=== PATIENT | male | born 1990 | race Caucasian/White ===

== ENCOUNTER 2017-07-14 10:15 | Inpatient (IN) | payer BC ==
[2017-07-14 11:20] LABS: #Eosinphils 0.1 thou/uL (0.0-0.7); #Lymphocytes 1.2 thou/uL (1.20-3.40); #Monocytes 0.3 thou/uL (0.11-0.59); #Neutrophils 2.8 thou/uL (1.40-6.50); %Basophils 0.5 % (0.0-1.0); %Eosinophils 1.9 % (0.0-10.0); %Lymphocytes 27.3 % (21.0-51.0); %Monocytes 7.1 % (0.0-10.0); %Neutrophils 63.2 % (42.0-75.0); Hemoglobin 15.1 g/dL (14.0-18.0); Mean Corpuscular HGB CONC 34.1 g/dL (32.0-36.0); Mean Platelet Volume 7.8 fL (7.4-10.4); Platelet Count 213 thou/uL (130-400); RBC Distribution Width 11.9 % (11.5-14.5); Red Blood Cell (RBC) Count 4.87 mill/uL (4.70-6.10); White Blood Cell (WBC) Count 4.5 thou/uL (4.8-10.8)
[2017-07-14 11:42] LABS: ALT (SGPT) 11 U/L (8-55); AST (SGOT) 16 U/L (5-34); Albumin 5.1 g/dL (3.5-5.0); Alkaline Phosphatase 71 U/L (40-150); Anion Gap 15 mmol/L (10-20); BUN (Urea Nitrogen) 10 mg/dL (8.9-20.6); Bilirubin, Total 0.6 mg/dL (0.2-1.2); Calc. Creatinine Clearance 0 mL/min (70-130); Calcium 9.7 mg/dL (7.8-10.44); Carbon Dioxide 22 mmol/L (22-29); Chloride 107 mmol/L (98-107); Estimated GFR-MDRD Greater than 90; Globulin 2.7 g/dL (2.4-3.5); Glucose 109 mg/dL (70-105); Potassium 3.7 mmol/L (3.5-5.1); Protein, Total 7.8 g/dL (6.0-8.3); Sodium 140 mmol/L (136-145)
[2017-07-14 11:46] LABS: CKMB 0.8 ng/mL (0-6.6); Troponin I Less than 0.010 ng/mL (< 0.028)
--- NOTE | 2017-07-14 14:09 | RAD ---
CHEST PA AND LATERAL: HISTORY: A 26-year-old male with a history of chest tightness this morning. History of anxiety. COMPARISON: 12/29/16. FINDINGS: There is a very large right-sided pneumothorax with some degree of tension and minimal shift of heart and mediastinum to the left and some depression of the right hemidiaphragm. The left lung appears c lear. IMPRESSION: Very large tension right-sided pneumothorax. Findings were discussed with Dr. Zuñiga in the ER at 1 1:06 a.m. CODE LOIDA POS: KILO
[2017-07-14] MEDS ORDERED: Ondansetron ODT 4 MG TAB PO PRN (14:29)
[2017-07-14] MEDS ORDERED: Acetaminophen 325 MG TAB PO PRN (14:29)
[2017-07-14] MEDS ORDERED: Guaifenesin DM 100-10/5 ML UDCUP PO PRN (14:29)
[2017-07-14] MEDS ORDERED: HYDROcodone/Acetaminophen 5/325 mg Tablet PO PRN (14:29)
[2017-07-14] MEDS ORDERED: HYDROcodone/Acetaminophen 5/325 mg Tablet ONE (14:34)
--- NOTE | 2017-07-14 15:47 | CT ---
CHEST CT WITHOUT IV CONTRAST: History: 26-year-old male with history of spontaneous pneumothorax with chest pain. Evaluate for right lung blebs. FINDINGS: The previously noted large right sided pneumothorax has markedly decreased in size with some residual . The apical region of the right lung does not show any significant blebs or bullae. In the posterior aspect of the mid right lower lobe there is some minimal pleural based parenchymal changes in what a ppears to be several small bullae with some associated atelectasis. In the right lung base there is s ome persistent pneumothorax and some minimal atelectasis. In addition there appear to be several pote ntial bullae or blebs measuring approximately 1.2 x 3.8 cm. It is conceivable that these air densitie s could represent some loculated residual pneumothorax. There is some very mild pleural thickening of the visual pleura in the apex of the right lung. There appear to be a few small blebs in the apex of the left lung. No mediastinal mass or adenopathy. No significant pleural effusion or pericardial eff usion. IMPRESSION: Some residual right sided pneumothorax. Some visceral pleural thickening in the right apex. Residual pneumothorax with some residual atelectasis in the right lateral midlung zone and the posterior right mid and lower lung zone. Probable small bullae in the posterior midlung zone and an approximately 1. 2 x 3.8 region of what appears to be some loculated bullae or blebs in the right lung base. There is some associated atelectasis and some residual pneumothorax. It is conceivable that some of this air d ensity is related to some loculated pneumothorax. Follow up CT scan after the right lung has been ful ly inflated might further characterize this. POS: KILO
--- NOTE | 2017-07-14 15:48 | OP ---
PREOPERATIVE DIAGNOSIS: Recurrent right pneumothorax. POSTOPERATIVE DIAGNOSIS: Recurrent right pneumothorax. PROCEDURE: Right PneumoDart placement. SURGEON PERFORMED: Anatoliy Porter M.D. ANESTHESIA: 1% lidocaine for local. PROCEDURE IN DETAIL: After consent was obtained, right chest wall was prepped and draped in usual st erile fashion. Skin and subcutaneous tissues were anesthetized with 1% lidocaine. Percutaneous acce ss to the chest was obtained and the catheter slid nicely into the chest. There was good air boudreaux af terwards. The patient was able to cough and expel air. The catheter was secured to the chest wall w ith silk suture. Catheter was placed to a Heimlich valve. The patient tolerated procedure well and sterile dressings were applied.
--- NOTE | 2017-07-14 15:53 | CON ---
DATE OF CONSULTATION: 07/14/2017 HISTORY OF PRESENT ILLNESS: Mr. Johnson is a 26-year-old gentleman, who was in the hospital in late with a right pneumothorax. This was his first episode. He was treated with a chest tube with res olution of his pneumothorax. He has done well until yesterday when he began to experience shoulder p ain and then shortness of breath today. This led to him coming to the emergency department. Chest x -ray shows large right pneumothorax. This is his second episode. PAST MEDICAL HISTORY: None. PAST SURGICAL HISTORY: Appendectomy. CURRENT MEDICATIONS AT HOME: None. ALLERGIES: None. SOCIAL HISTORY: He smokes about a half-pack of cigarettes a day. He lives with his grandmother and is unemployed. PHYSICAL EXAMINATION: GENERAL: This is a very thin, young man, resting comfortably in emergency department. VITAL SIGNS: His heart rate is 80 and regular and blood pressure is 132/76. LUNGS: Have depressed lung sounds on the right. CHEST: He has a previous scar on his chest wall. HEART: Rhythm is regular. ABDOMEN: Soft and nontender. EXTREMITIES: No edema. RADIOLOGY: Chest x-ray has been reviewed. ASSESSMENT AND PLAN: This is a 26-year-old with a recurrent right pneumothorax. Plan is for a small bore chest tube placement and thoracoscopy for bleb resection tomorrow. I will get a CT scan of his chest in the interim.
[2017-07-14 15:56] VITALS: BMI 16.5
[2017-07-14] MEDS: HYDROcodone/Acetaminophen 5/325 mg Tablet PO PRN ×2 (18:30→22:33)
[2017-07-15] MEDS ORDERED: CEFAZOLIN/Water 2 GM/20 ML SYRINGE SLOW IVP SCH (12:00)
[2017-07-15] MEDS ORDERED: CEFAZOLIN/Water 2 GM/20 ML SYRINGE ONE ×2 (13:06→16:16)
[2017-07-15] MEDS ORDERED: Midazolam HCl 2 mg/2 ml Vial ONE ×2 (14:13→17:04)
[2017-07-15] MEDS ORDERED: Lidocaine 1% PF 5 ML VIAL ONE (15:22)
[2017-07-15] MEDS ORDERED: Propofol 200 MG/20 ML VIAL ONE (15:22)
[2017-07-15] MEDS ORDERED: Ondansetron HCl/PF 4 MG/2 ML Vial ONE (15:22)
[2017-07-15] MEDS ORDERED: diphenhydrAMINE 50 MG/ML VIAL ONE (15:22)
[2017-07-15] MEDS ORDERED: Glycopyrrolate 0.2 MG/ML 5 ML SYRINGE ONE (15:22)
[2017-07-15] MEDS ORDERED: Fentanyl 250 MCG/5 ML VIAL ONE ×2 (17:04→20:10)
[2017-07-15] MEDS ORDERED: Bupivacaine HCl 0.5%/Epinephrine 1:200,000/PF 30 ml Vial ONE (18:22)
[2017-07-15] MEDS ORDERED: Meperidine HCl/PF 25 MG/ML VIAL ONE (19:39)
[2017-07-15] MEDS ORDERED: Ondansetron HCl/PF 4 MG/2 ML Vial IVP PRN (19:43)
[2017-07-15] MEDS ORDERED: Promethazine HCl 25 MG/ML VIAL IM PRN (19:43)
[2017-07-15] MEDS ORDERED: Meperidine HCl/PF 25 MG/ML VIAL SLOW IVP PRN (19:43)
[2017-07-15] MEDS ORDERED: Promethazine HCl 25 MG/ML VIAL SLOW IVP PRN (19:43)
--- NOTE | 2017-07-15 20:28 | OP ---
DATE OF PROCEDURE: 07/15/2017 PREOPERATIVE DIAGNOSIS: Recurrent right spontaneous pneumothorax. POSTOPERATIVE DIAGNOSIS: Recurrent right spontaneous pneumothorax. PROCEDURE: Right thoracoscopy with resection of blebs in the right upper lobe and right lower lobe with a wedge resection. Mechanical pleurodesis SURGEON: Anatoliy Porter M.D. ANESTHESIA: General endotracheal. ESTIMATED BLOOD LOSS: Less than 50 mL DRAINS: 28-Gambian chest tubes. SPECIMENS: 1. Right upper lobe wedge. 2. Right middle lobe wedge. PROCEDURE IN DETAIL: After consent was obtained, the patient was brought to operating room and placed supine on operating room table. Appropriate anesthetic monitor was placed and general endotracheal anesthesia induced. Flexible fiberoptic bronchoscopy was performed to position the endotracheal tube. The patient was placed in left lateral decubitus position. Joints were appropriately padded. SCDs were used. Right chest wall was prepped and draped in usual sterile fashion. The previous chest tube was removed. Two separate working incisions were made and 1 anterior in the mid axillary line and one posteriorly. There was a third incision made for instrumentation. Bronchoscope was inserted and the chest explored. There was an area in the right middle lobe that had obvious blebs that was resected. There was area in the apex that had obvious blebs that was resected. Both resections were performed using a WHIT stapler with multiple fires. The lung was inflated and there were no other areas of blebs that were noted. A 28-Gambian chest tube was positioned through the anterior port site and the lung reexpanded. Lung expanded nicely. The lung was redeflated and the chest wall abraded with Bovie scratch pad. 0.5% Marcaine was used to perform a rib block. The lung was reexpanded. The 2 remaining incisions were closed in multiple layers and Dermabond applied to the skin. The patient tolerated procedure well, was awakened, extubated, and transferred to recovery room in stable condition. FELICIA
[2017-07-15] MEDS ORDERED: Fentanyl 100 MCG/2 ML VIAL SLOW IVP PRN (20:44)
--- NOTE | 2017-07-15 21:44 | RAD ---
RADIOGRAPH CHEST 1 VIEW: Date: 07-15-17 Time: 8:06 p.m. HISTORY: 26-year-old male follow up pneumothorax, status post right thoracoscopy. COMPARISON: 07-14-17 FINDINGS: The previously demonstrated large right pneumothorax has resolved, and there is a new right sided ofelia st tube ascending the lateral aspect of the right thoracic cage, with distal tip at the apex. There i s another new finding of a focal 2 x 2.5 cm nodular opacity overlying the right upper lobe. The rest of the visualized lung garcia are clear. Left lateral costophrenic angle is sharp. Cardiomediastinal shadow is narrowed. IMPRESSION: 1. New right sided thoracotomy tube. 2. No pneumothorax visible. 3. Nodular density near right apex may represent recent post-surgical changes, including suture line. AYAN POS: KILO
[2017-07-15] MEDS: HYDROcodone/Acetaminophen 5/325 mg Tablet PO PRN (22:10)
[2017-07-16] MEDS: Ketorolac Tromethamine 30 MG/ML VIAL IVP SCH ×4 (00:52→17:18)
[2017-07-16] MEDS: HYDROcodone/Acetaminophen 5/325 mg Tablet PO PRN ×2 (02:37→20:30)
--- NOTE | 2017-07-16 09:06 | RAD ---
PORTABLE CHEST 1 VIEW: Date: 07/16/17 Time: 0719 hours HISTORY: Status post right thoracoscopy. FINDINGS/IMPRESSION: A tiny right apical pneumothorax may be present. Remainder of exam is otherwise study since the previ ous day's study. POS: OFF
[2017-07-17] MEDS: Ketorolac Tromethamine 30 MG/ML VIAL IVP SCH ×2 (00:10→05:54)
[2017-07-17 08:01] VITALS: BP 100/63; TEMP 97.8
--- NOTE | 2017-07-17 11:25 | DIS ---
DATE OF ADMISSION: 07/14/2017 DATE OF DISCHARGE: 07/17/2017 DIAGNOSIS: Recurrent right pneumothorax. PROCEDURES: 1. Right chest tube placement. 2. Right thoracoscopy with resection of apical and right middle lobe blebs. DESCRIPTION OF HOSPITAL STAY: Mr. Johnson presented to the emergency department with a recurrent right pneumothorax. He continues to smoke. He has had smoking cessation discussion. Chest tube was plac ed in the emergency department. He underwent thoracoscopy with resection of blebs in the following m orning. He has done well. There was no air leak from his chest tube today and it was removed. Martina damir of his hospital stay he has been recovering. Follow up will be with me in 2 weeks.
== END 2017-07-17 10:53 | disposition home or self-care (01) | DRG 165 ==
LOC: ERS 10:15 → SURG A 12:56
PROVIDERS: ADMIT Thoracic Surgery (Cardiothoracic Vascular Surgery); ATTEND Thoracic Surgery (Cardiothoracic Vascular Surgery)
PROC: 0W9940Z Drainage of Right Pleural Cavity with Drainage Device, Percutaneous Endoscopic Approach (ICD-10-PCS; 2017-07-14)
PROC: 0B5N4ZZ Destruction of Right Pleura, Percutaneous Endoscopic Approach (ICD-10-PCS; principal; 2017-07-15)
PROC: 0BBD4ZZ Excision of Right Middle Lung Lobe, Percutaneous Endoscopic Approach (ICD-10-PCS; 2017-07-15)
PROC: 0BBC4ZZ Excision of Right Upper Lung Lobe, Percutaneous Endoscopic Approach (ICD-10-PCS; 2017-07-15)
DX: J93.83 Other pneumothorax (principal); F17.210 Nicotine dependence, cigarettes, uncomplicated; Z90.49 Acquired absence of other specified parts of digestive tract; Z56.0 Unemployment, unspecified
CPT/HCPCS: 36415; 71045; 71046; 71250; 80053; 82553; 84484; 85025; 88307; 93005; 99406; J0670; J0690; J1200; J1885; J2001; J2175; J2250; J2405; J2704; J3010